=== PATIENT | male | born 1995 | race Caucasian/White ===

== ENCOUNTER 2016-09-27 14:10 | Emergency (ER) | payer SELFPAY ==
[2016-09-27 15:08] VITALS: BMI 40.4
[2016-09-27 15:11] VITALS: BP 150/65; PULSE 61; TEMP 98.5
--- NOTE | 2016-09-27 17:54 | DIRPT ---
CLINICAL DATA: Pain and swelling of the third right finger. EXAM: RIGHT FINGER(S) - 2+ VIEW COMPARISON: None. FINDINGS: There is no evidence of fracture or dislocation. There is no evidence of arthropathy or other focal bone abnormality. There is diffuse soft tissue swelling of the third right finger. IMPRESSION: Soft tissue swelling without evidence of osseous abnormalities. Electronically Signed By: Chelsea Moses M.D. On: 09/27/2016 17:52
--- NOTE | 2016-09-27 18:02 | EDPRACDOC ---
- General Information Chief Complaint: Hand Pain Stated Complaint: FINGER SWOLLEN Time Seen by Provider: 09/27/16 17:18 Information Source: Patient Mode of Arrival: Car Home Medications: Home Medications Ibuprofen Tablet [Motrin] 800 mg PO QID #30 tab 09/27/16 Sulfamethoxazole/Trimethoprim [Bactrim Ds Tablet] 1 tab PO BID #14 tab 09/27/16 Allergies/Adverse Reactions: Allergies Allergy/AdvReac Type Severity Reaction Status Date / Time No Known Allergies Allergy Verified 09/27/16 15:08 - History of Present Illness Onset: THIS AM HPI: PT PRESENTS DUE TO RIGHT MIDDLE FINGER SWELLING AND REDNESS. PT DOES NOT KNOW OF ANY RECENT INJURY OR TRAUMA TO THE AREA. PT IS ABLE TO MOVE THE FINGER IS ALL DIRECTIONS WITHOUT PAIN, NO PALMAR PAIN NOTED, NO PAIN WITH PASSIVE EXTENSION. BRISK CAP REFILL, 2+ RADIAL PULSE Location: Reports: Right, 3rd Finger Dominant Hand: Right Mechanism: Reports: Unknown Circumstances: Reports: Unknown Tetanus Up To Date?: Yes Associated Signs & Symptoms: Reports: None ED Past Medical History - History Reviewed Yes Nurses notes reviewed and agree except as marked - Patient Medical History Psychological History: Denies: Depression - Social Medical History Smoking Status: Never smoker EDM Review of Systems - Review of Systems ROS Negative Except as Marked: Yes All systems reviewed and were negative except as marked - Physical Exam Constitutional: No apparent distress, Alert Oriented to: Time, Person, Place Last recorded Vital Signs: Last Vital Signs Temp 98.5 F 09/27/16 15:08 Pulse 61 09/27/16 15:08 Resp 20 09/27/16 15:08 BP 150/65 09/27/16 15:08 Pulse Ox 98 09/27/16 15:08 Oxygen Pulse Oxygen Saturation 98 O2 Device Oxygen Flow Rate Fraction of Inspired Oxygen ( FIO2) - HEENT Head: Normal ( normocephalic) Eye Exam: Normal (PERRL, EOMI, Sclera white) Oropharynx: Normal (Pharynx:Moist without exudate,Gums-no swelling) Tympanic Membrane: Normal ENT EAC: Normal TMJ: Normal Nose: No Symptoms Reported (septum midline) Neck: Normal (FROM, trachea at midline) - Respiratory/Cardiovascular Respiratory: Normal - CTA (BBS clear to auscultation without adventitious sounds ) Cardiovascular: Normal (RRR without murmur, gallop or rub) - GI Auscultation: Normal (NABS) Palpation: Normal (Soft,No rebound or guarding, non distended) Tenderness: Non tender Crouch's Sign: Negative - Musculoskeletal Back: Normal (Non-Tender) Extremities: Normal (Normal tone, Pulses 2+ No cyanosis or edema, FROM) - Integumentary Skin: Normal, Warm, Dry Lymphatics: Normal (no adenopathy) - Neurologic Memory Impaired: Normal Motor Function: Normal (Normal tone, Pulses 2+ No cyanosis or edema, FROM) Cranial Nerve: Normal (CN II-X11 intact sensation, strength 5/5) Cerebellar: Normal Mood Description: Normal Perception: Normal ED Hand Problem Physical Exam - Musculoskeletal Hand: Normal Wrist: Normal Digit: Swelling, Mild Tenderness Digit Strength: Normal Nail: Normal Nailbed: Normal Soft Tissue: Red, Swelling Distal Function/Circulation: Normal - Integumentary Skin: Normal Amputation: None Lymphatics: Normal - Differential Diagnosis Other Decision Time to Discharge: 18:03 - Departure Disposition: Home Condition: Stable Final Diagnosis: Finger swelling Instructions: RICE: Routine Care for Injuries, Swollen Joint (ED) Education/Counseling Given To: Patient Education/Counseling Given Regarding: Diagnosis, Treatment, Prognosis, Follow Up Referrals: Leodan Alonzo II, MD [Staff Physician] - One Week Prescriptions: Ibuprofen Tablet [Motrin] 800 mg PO QID #30 tab Sulfamethoxazole/Trimethoprim [Bactrim Ds Tablet] 1 tab PO BID #14 tab Forms: Excuse Note Additional Instructions: ICE AND ELEVATION IS VERY IMPORTANT. INCREASE FLUID INTAKE. FOLLOW UP WITH PRIMARY CARE PROVIDER NEXT WEEK. TAKE ALL ANTIBIOTICS PRESCRIBED. RETURN TO THE ED FOR WORSENING SYMPTOMS OR CONCERNS. IF THE AREA IS NO BETTER OR IF IT IS WORSE PLEASE RETURN TO THE ED
[2016-09-27] MEDS ORDERED: IBUPROFEN 800 MG TAB PO ONE (18:04)
[2016-09-27] MEDS ORDERED: TRIMETHOPRIM-SULFAMETHOXAZOLE TAB PO ONE (18:04)
== END 2016-09-27 18:30 | disposition home or self-care (01) ==
LOC: EDMC 14:10
DX: M79.89 Other specified soft tissue disorders (principal)
CPT/HCPCS: 99283